=== PATIENT | female | born 1965 | race Asian ===

== ENCOUNTER → 2018-08-31 | Outpatient (CLI) | payer BC | LOC: MC.RAD 11:00 | DX: Z12.31 Encounter for screening mammogram for malignant neoplasm of breast (principal) ==

== ENCOUNTER → 2020-01-25 | Outpatient (CLI) | payer BC | LOC: MC.RAD 11:08 | DX: Z12.31 Encounter for screening mammogram for malignant neoplasm of breast (principal) ==

== ENCOUNTER 2020-02-14 08:25 | Day surgery (SDC) | payer BC ==
[~2020-02-14] VITALS: Ht 160 cm; Wt 49.4 kg
[2020-02-14] MEDS ORDERED: SYNTHROID 0.0.025 MG PO (08:49)
[2020-02-14 09:11] VITALS: BP 108/79; PULSE 82; TEMP 98.1
[2020-02-14 10:10] VITALS: BP 118/77; PULSE 53; TEMP 98
--- NOTE | 2020-02-14 10:10 | NUR ---
PATIENT TRANSPORTED PER CART TO BAY 3 ACCOMPANIED BY ENDO STAFF. PATIENT AMBULATED WITH 1 ASSIST, SLOW STEADY GAIT FROM CART TO CHAIR. MONITORS REAPPLIED. VSS. VERBAL REPORT RECEIVED. AT BEDSIDE. PATIENT DENIES C/O'S. 1014 PATIENT GIVEN COFFEE TO DRINK. DR TONG IN ROOM AND SPEAKS WITH PATIENT AND .
[2020-02-14 10:15] VITALS: BP 105/83; PULSE 54
--- NOTE | 2020-02-14 10:25 | NUR ---
VSS ON ROOM AIR. PATIENT ALERT AND TALKING WITH . PATIENT TAKING COFFEE AND WATER WITHOUT PROBLEMS. PATIENT DENIES PROBLEMS. 1025 PATIENT GIVEN MUFFIN TO EAT.
[2020-02-14 10:30] VITALS: BP 126/61; PULSE 53
--- NOTE | 2020-02-14 10:35 | NUR ---
VSS ON ROOM AIR. PATIENT EATS MUFFIN WITHOUT PROBLEMS. PATIENT DENIES NAUSEA AND DISCOMFORT. AT BEDSIDE AND TALKING WITH PATIENT.
[2020-02-14 10:45] VITALS: BP 122/70; PULSE 52
--- NOTE | 2020-02-14 11:06 | NUR ---
1050 VSS ON ROOM AIR. IV SITE DC'D WITH CATHETER TIP INTACT. PRESSURE AND BANDAGE APPLIED. DISCHARGE INSTRUCTIONS GIVEN IN WRITTEN PACKET AND VERBALLY DISCUSSED. QUESTIONS ANSWERED AND PATIENT AND VOICED UNDERSTANDING. PATIENT CHANGES INTO STREET CLOTHES. 1055 PATIENT DISCHARGED PER WHEELCHAIR ACCOMPANIED BY AMB NURSE TO PRIVATE VECHILE.
== END 2020-02-14 10:55 | disposition home or self-care (01) ==
LOC: SDCO 08:25
DX: Z12.11 Encounter for screening for malignant neoplasm of colon (principal); K64.0 First degree hemorrhoids; Z91.041 Radiographic dye allergy status; Z88.0 Allergy status to penicillin
CPT/HCPCS: J2704; J7030

== ENCOUNTER → 2020-07-30 | Outpatient (CLI) | payer BC ==
[~2020-07-30] MED LIST: SYNTHROID 0.0.025 MG PO
== END ==
LOC: COL.RAD 13:28
DX: E04.1 Nontoxic single thyroid nodule (principal)

== ENCOUNTER → 2022-06-05 | Outpatient (CLI) | payer BC | LOC: COL.RAD 13:29 | DX: R10.32 Left lower quadrant pain (principal) ==

== ENCOUNTER → 2022-06-24 | Outpatient (CLI) | payer BC | LOC: COL.RAD 13:28 | DX: D73.89 Other diseases of spleen (principal) | CPT/HCPCS: Q9967 ==

== ENCOUNTER → 2023-10-14 | Outpatient (CLI) | payer BC | LOC: MC.RAD 11:15 | DX: Z12.31 Encounter for screening mammogram for malignant neoplasm of breast (principal) ==